=== PATIENT | male | born 1950 | race Caucasian/White ===

== ENCOUNTER 2020-12-25 06:25 | Day surgery (SDC) | payer MEDICARE ==
[2020-12-25] VITALS (9 sets, daily range): BP systolic 120–158; BP diastolic 65–90
[~2020-12-25] VITALS: Ht 172.7 cm; Wt 72.5 kg
[2020-12-25] MEDS ORDERED: diphenhydrAMINE 25mg capsule PO PRN (06:50)
[2020-12-25] MEDS ORDERED: normal saline 1,000 ML IV SCH (06:50)
[2020-12-25] MEDS ORDERED: CEFD300C3 PO (07:07)
[2020-12-25] MEDS ORDERED: UBID100C16 PO (07:07)
[2020-12-25] MEDS ORDERED: LORA-641 PO (07:07)
[2020-12-25] MEDS ORDERED: SAW/1TAB2 PO (07:07)
[2020-12-25] MEDS ORDERED: EVOL140P3 SQ (07:07)
[2020-12-25] MEDS ORDERED: MULT-1106 PO (07:07)
[2020-12-25] MEDS ORDERED: ASPI81TA52 PO (07:07)
[2020-12-25] MEDS ORDERED: LEVO112T5 PO (07:07)
[2020-12-25] MEDS ORDERED: OMEG1CAP21 PO (07:07)
[2020-12-25 07:53] LABS: BASOPHILS # (AUTO) 0.1 X10'3 (0-0.2); HEMATOCRIT 43.2 % (42.0-52.0); HEMOGLOBIN 14.7 g/dl (14.0-17.9); LYMPHOCYTES # (AUTO) 1.4 X10'3 (1.1-4.8); MEAN CORPUSCULAR HEMOGLOBIN 31.2 PG (27.0-31.0); MEAN PLATELET VOLUME 8.4 FL (7.4-10.4); MONOCYTES # (AUTO) 0.3 X10'3 (0-0.9); PLATELET COUNT 205 X10'3 (140-440)
[2020-12-25 07:56] LABS: BASOPHILS % (AUTO) 1.4 % (0-1); EOSINOPHILS # (AUTO) 0.2 X10'3 (0-0.9); EOSINOPHILS % (AUTO) 5.8 % (0-6); MEAN CORPUSCULAR VOLUME 91.9 FL (78-98); MONOCYTES % (AUTO) 8.5 % (2-12); NEUTROPHILS # (AUTO) 1.9 X10'3 (1.8-7.7); NEUTROPHILS % (AUTO) 48.3 % (42-75); RED CELL DISTRIBUTION WIDTH 15.3 % (11.5-14.5)
[2020-12-25 08:14] LABS: ALBUMIN 3.4 G/DL (3.4-5.0); ANION GAP 10 (8-16); BLOOD UREA NITROGEN 24 MG/DL (7-18); BUN/CREATININE RATIO 22.9 (5.4-32.0); CALCIUM 8.3 MG/DL (8.5-10.1); CHLORIDE 109 MMOL/L (99-107); CREATININE 1.05 MG/DL (0.60-1.10); GLUCOSE 87 MG/DL (70-104); MAGNESIUM 2.1 MG/DL (1.5-2.4); POTASSIUM 4.1 MMOL/L (3.5-5.1); SODIUM 142 MMOL/L (135-145); TOTAL CARBON DIOXIDE 22.8 MMOL/L (24-32); eGFR 69 ML/MIN
[2020-12-25] MEDS ORDERED: iohexol 350MG/ML 100ml bottle IV ONE ×2 (08:45→10:14)
[2020-12-25] MEDS ORDERED: fentaNYL/PF 50MCG/1 ML 2ML syringe ONE (08:45)
[2020-12-25] MEDS ORDERED: midazolam 1 mg/ML 2ml injection ONE (08:45)
[2020-12-25] MEDS ORDERED: iohexol 350 MG/ML 50ML vial IV ONE (08:45)
[2020-12-25] MEDS ORDERED: heparin 1,000unit/ml 10ml vial 10 ML ONE (08:45)
[2020-12-25] MEDS ORDERED: LIDOcaine 1% (10mg/ml)w/preservative injection 20ml MDV ONE (08:45)
[2020-12-25] MEDS ORDERED: adenosine 90 MG/30ml kit =/or below 120kg Cath Lab IV ONE (10:01)
[2020-12-25] MEDS ORDERED: atropine 0.1mg/ml 10ml syringe ONE (10:04)
[2020-12-25] MEDS ORDERED: nitroGLYCERIN-Tridil 50MG/D5W 250 ML IV ONE (10:20)
[2020-12-25] MEDS ORDERED: proCHLORperazine 10 MG/2 ml inj IV PRN (11:25)
[2020-12-25] MEDS ORDERED: ondansetron/PF 4mg/2ml inj IV PRN (11:25)
[2020-12-25] MEDS ORDERED: HYDROcodone/acetaminophen 5mg/325mg tablet PO PRN (11:25)
[2020-12-25] MEDS ORDERED: HYDROcodone/acetaminophen 10/325mg tab PO PRN (11:25)
== END 2020-12-25 13:52 | disposition home or self-care (01) ==
LOC: SSTAY O 06:25
PROVIDERS: ATTEND Internal Medicine Cardiovascular Disease
DX: R94.39 Abnormal result of other cardiovascular function study (principal); I25.110 Atherosclerotic heart disease of native coronary artery with unstable angina pectoris; I42.9 Cardiomyopathy, unspecified; I25.2 Old myocardial infarction; E78.5 Hyperlipidemia, unspecified; E03.9 Hypothyroidism, unspecified; Z79.82 Long term (current) use of aspirin; Z79.899 Other long term (current) drug therapy; Z95.5 Presence of coronary angioplasty implant and graft; Z88.8 Allergy status to other drugs, medicaments and biological substances; Z80.8 Family history of malignant neoplasm of other organs or systems; Z82.49 Family history of ischemic heart disease and other diseases of the circulatory system
CPT/HCPCS: 36415; 80048; 83735; 85025; 85610; 93005; 93458; 99152; 99153; C1751; C1760; C1769; C1894; J0153; J0461; J1644; J2001; J2250; J3010; J7030; Q0163; Q9967; A4620; A6258; C1874; J3490

== ENCOUNTER 2021-01-04 09:44 | Day surgery (SDC) | payer MEDICARE ==
[2021-01-04] VITALS (9 sets, daily range): BP systolic 120–171; BP diastolic 60–77
[~2021-01-04 09:44] MED LIST: ASPI81TA52 PO; CEFD300C3 PO; EVOL140P3 SQ; LEVO112T5 PO; LORA-641 PO; MULT-1106 PO; OMEG1CAP21 PO; SAW/1TAB2 PO; UBID100C16 PO
[2021-01-04 10:57] LABS: BASOPHILS # (AUTO) 0.1 X10'3 (0-0.2); BASOPHILS % (AUTO) 1.1 % (0-1); EOSINOPHILS # (AUTO) 0.2 X10'3 (0-0.9); EOSINOPHILS % (AUTO) 4.4 % (0-6); HEMATOCRIT 44.3 % (42.0-52.0); LYMPHOCYTES # (AUTO) 1.4 X10'3 (1.1-4.8); LYMPHOCYTES % (AUTO) 27.5 % (21-51); MEAN CORPUSCULAR HEMOGLOBIN 30.9 PG (27.0-31.0); MEAN CORPUSCULAR HGB CONC 33.8 g/dL (33.0-36.5); MEAN CORPUSCULAR VOLUME 91.6 FL (78-98); MEAN PLATELET VOLUME 8.5 FL (7.4-10.4); MONOCYTES # (AUTO) 0.4 X10'3 (0-0.9); MONOCYTES % (AUTO) 7.9 % (2-12); NEUTROPHILS # (AUTO) 2.9 X10'3 (1.8-7.7); NEUTROPHILS % (AUTO) 59.1 % (42-75); PLATELET COUNT 203 X10'3 (140-440); RED BLOOD COUNT 4.84 X10'6 (4.70-6.10); RED CELL DISTRIBUTION WIDTH 15.1 % (11.5-14.5); WHITE BLOOD COUNT 4.9 X10'3 (4.5-11.0)
[2021-01-04 11:00] LABS: CALCIUM 8.6 MG/DL (8.5-10.1); eGFR 66 ML/MIN
[2021-01-04] MEDS ORDERED: midazolam 1 mg/ML 2ml injection ONE (11:03)
[2021-01-04] MEDS ORDERED: LIDOcaine 1% (10mg/ml)w/preservative injection 20ml MDV ONE (11:03)
[2021-01-04] MEDS ORDERED: fentaNYL/PF 50MCG/1 ML 2ML syringe ONE (11:03)
[2021-01-04] MEDS ORDERED: iohexol 350 MG/ML 50ML vial IV ONE ×2 (11:03→11:38)
[2021-01-04] MEDS ORDERED: heparin 1,000unit/ml 10ml vial 10 ML ONE (11:03)
[2021-01-04 11:04] LABS: ALBUMIN 3.6 G/DL (3.4-5.0); ANION GAP 9 (8-16); BLOOD UREA NITROGEN 21 MG/DL (7-18); BUN/CREATININE RATIO 19.1 (5.4-32.0); CHLORIDE 109 MMOL/L (99-107); GLUCOSE 93 MG/DL (70-104); MAGNESIUM 2.2 MG/DL (1.5-2.4); POTASSIUM 4.1 MMOL/L (3.5-5.1); SODIUM 143 MMOL/L (135-145); TOTAL CARBON DIOXIDE 25.4 MMOL/L (24-32)
[2021-01-04] MEDS ORDERED: adenosine 90 MG/30ml kit =/or below 120kg Cath Lab IV ONE (12:29)
[2021-01-04] MEDS ORDERED: ticagrelor 90mg tablet ONE (13:02)
== END 2021-01-04 17:20 | disposition home or self-care (01) ==
LOC: SSTAY O 09:44
PROVIDERS: ATTEND Internal Medicine Cardiovascular Disease
DX: R94.39 Abnormal result of other cardiovascular function study (principal); I25.118 Atherosclerotic heart disease of native coronary artery with other forms of angina pectoris; I25.2 Old myocardial infarction; E78.00 Pure hypercholesterolemia, unspecified; E03.9 Hypothyroidism, unspecified; Z95.5 Presence of coronary angioplasty implant and graft; Z79.899 Other long term (current) drug therapy; Z79.82 Long term (current) use of aspirin; Z98.890 Other specified postprocedural states; Z88.8 Allergy status to other drugs, medicaments and biological substances; Z82.49 Family history of ischemic heart disease and other diseases of the circulatory system
CPT/HCPCS: 36415; 80048; 83735; 85025; 85610; 93005; 93571; 99152; 99153; C1725; C1751; C1760; C1769; C1874; C1894; C9600; J0153; J1644; J2001; J2250; J3010; Q9967; A4620; A6258

== ENCOUNTER 2021-06-28 08:17 | Day surgery (SDC) | payer MEDICARE ==
[~2021-06-28] VITALS: Ht 172.7 cm; Wt 75.1 kg
[2021-06-28] VITALS (15 sets, daily range): BP systolic 111–147; BP diastolic 53–78
[~2021-06-28 08:17] MED LIST changes: -MULT-1106 PO
[2021-06-28] MEDS ORDERED: normal saline 1,000 ML IV SCH (08:45)
[2021-06-28] MEDS ORDERED: diphenhydrAMINE 25mg capsule PO PRN (08:45)
[2021-06-28 09:16] LABS: BLOOD UREA NITROGEN 23 MG/DL (7-18); EOSINOPHILS # (AUTO) 0.3 X10'3 (0-0.9); HEMOGLOBIN 14.6 g/dl (14.0-17.9); LYMPHOCYTES # (AUTO) 1.2 X10'3 (1.1-4.8); LYMPHOCYTES % (AUTO) 26.1 % (21-51); MEAN CORPUSCULAR HEMOGLOBIN 31.1 PG (27.0-31.0); MEAN CORPUSCULAR HGB CONC 34.7 g/dL (33.0-36.5); MEAN CORPUSCULAR VOLUME 89.4 FL (78-98); MONOCYTES # (AUTO) 0.5 X10'3 (0-0.9); MONOCYTES % (AUTO) 11.4 % (2-12); NEUTROPHILS # (AUTO) 2.5 X10'3 (1.8-7.7); NEUTROPHILS % (AUTO) 55.5 % (42-75); PLATELET COUNT 221 X10'3 (140-440); RED BLOOD COUNT 4.69 X10'6 (4.70-6.10); RED CELL DISTRIBUTION WIDTH 13.9 % (11.5-14.5); WHITE BLOOD COUNT 4.6 X10'3 (4.5-11.0)
[2021-06-28] MEDS ORDERED: CLOP75TA34 PO (09:19)
[2021-06-28] MEDS ORDERED: NITR1PAT63 TOP (09:19)
[2021-06-28 09:22] LABS: ALBUMIN 3.4 G/DL (3.4-5.0); ANION GAP 8 (8-16); CALCIUM 8.2 MG/DL (8.5-10.1); CHLORIDE 108 MMOL/L (99-107); CREATININE 0.92 MG/DL (0.60-1.10); GLUCOSE 99 MG/DL (70-104); MAGNESIUM 2.2 MG/DL (1.5-2.4); POTASSIUM 3.9 MMOL/L (3.5-5.1); SODIUM 139 MMOL/L (135-145); TOTAL CARBON DIOXIDE 23.3 MMOL/L (24-32); eGFR 81 ML/MIN
[2021-06-28] MEDS ORDERED: LIDOcaine/PRILOcaine 5gm cream TP ONE (09:25)
[2021-06-28] MEDS ORDERED: nitroGLYCERIN-Tridil 50MG/D5W 250 ML IV ONE (11:04)
[2021-06-28] MEDS ORDERED: iohexol 350 MG/ML 50ML vial IV ONE (11:05)
[2021-06-28] MEDS ORDERED: fentaNYL/PF 50MCG/1 ML 2ML syringe ONE ×2 (11:05→15:24)
[2021-06-28] MEDS ORDERED: midazolam 1 mg/ML 2ml injection ONE ×3 (11:05→15:23)
[2021-06-28] MEDS ORDERED: heparin 1,000unit/ml 10ml vial 10 ML ONE ×3 (11:05→15:24)
[2021-06-28] MEDS ORDERED: verapamil 2.5 mg/ml inj IV ONE (11:05)
[2021-06-28] MEDS ORDERED: LIDOcaine 1% (10mg/ml)w/preservative inj. 20ml MDV ONE ×2 (11:05→15:24)
[2021-06-28] MEDS ORDERED: iohexol 350MG/ML 100ml bottle IV ONE ×4 (11:05→16:12)
[2021-06-28] MEDS ORDERED: clopidogrel 300mg tablet ONE (12:36)
[2021-06-28] MEDS ORDERED: nitroGLYCERIN 0.4mg SUBLingual tab SL ONE (12:38)
[2021-06-28] MEDS ORDERED: mag hydrox/Alum hydrox/simeth 30ml oral suspension PO ONE (12:50)
[2021-06-28] MEDS ORDERED: normal saline 1000ml 1,000 ML IV SCH ×2 (13:10→16:50)
== END 2021-06-28 20:05 | disposition home or self-care (01) ==
LOC: SSTAY O 08:17
PROVIDERS: ATTEND Internal Medicine Cardiovascular Disease
DX: I25.118 Atherosclerotic heart disease of native coronary artery with other forms of angina pectoris (principal); I25.2 Old myocardial infarction; E78.5 Hyperlipidemia, unspecified; E03.9 Hypothyroidism, unspecified; Z95.5 Presence of coronary angioplasty implant and graft; Z79.01 Long term (current) use of anticoagulants; Z79.899 Other long term (current) drug therapy; Z79.82 Long term (current) use of aspirin; Z88.8 Allergy status to other drugs, medicaments and biological substances
CPT/HCPCS: 36415; 80048; 83735; 85025; 85610; 93005; 93458; 99152; 99153; C1725; C1751; C1760; C1769; C1874; C1894; C9600; J1644; J2250; J3010; J3490; J7030; Q0163; Q9967; A4620; A5120; A6258